=== PATIENT | female | born 1965 | race Caucasian/White ===

== ENCOUNTER 2020-10-31 17:06 | Emergency (ER) | payer SELFPAY ==
[~2020-10-31] VITALS: Ht 170.2 cm; Wt 68.9 kg
[~2020-10-31 17:06] MED LIST: ACET-2619 PO; VITAMINS PO
[2020-10-31 17:22] VITALS: BP 111/70
--- NOTE | 2020-10-31 17:30 | NUR ---
JULIANNE KENT AT PT BEDSIDE FOR FURTHER EVALUATION.
--- NOTE | 2020-10-31 17:46 | NUR ---
55 Y/O FEMALE C/O RIGHT 4TH TOE PAIN 5/10 DESCRIBES ACHING S/P INJURY X 2 MONTHS. PT DENIES N/V, DENIES FEVER/CHILLS. DENIES PMH NKA
[2020-10-31] MEDS ORDERED: SULF-58 PO (18:41)
[2020-10-31] MEDS ORDERED: IBUP-1842 PO (18:41)
[2020-10-31 18:49] VITALS: BP 111/70
--- NOTE | 2020-10-31 18:49 | NUR ---
Patient discharged with v/s stable. Written and verbal after care instructions given FOR CELLULITIS and explained. Patient alert, oriented and verbalized understanding of instructions. Ambulatory with steady gait. All questions addressed prior to discharge. ID band removed. Patient advised to follow up with PMD. Rx of IBUPROFEN 400MH PO QID PRN PAIN AND BACCTRIUM 400-80MG PO BID FOR 10DAYS given. Patient educated on indication of medication including possible reaction and side effects. Opportunity to ask questions provided and answered.
== END 2020-10-31 18:49 | disposition home or self-care (01) ==
LOC: MED 17:06
DX: L03.031 Cellulitis of right toe (principal); Z79.1 Long term (current) use of non-steroidal anti-inflammatories (NSAID); Z79.2 Long term (current) use of antibiotics; Z79.899 Other long term (current) drug therapy
CPT/HCPCS: 73630; 99283